=== PATIENT | male | born 1955 | race Caucasian/White ===

== ENCOUNTER 2018-10-01 09:58 | Outpatient (CLI) | payer BC ==
[~2018-10-01] VITALS: Ht 185.4 cm; Wt 122.5 kg
[2018-10-01] MEDS ORDERED: PANT40TA3 PO (11:04)
[2018-10-01] MEDS ORDERED: METF-397 PO (11:04)
[2018-10-01] MEDS ORDERED: LISI40TA PO (11:04)
[2018-10-01] MEDS ORDERED: ATOR40TA70 PO (11:04)
== END 2018-10-01 11:05 | disposition home or self-care (01) ==
LOC: PREOP 09:58
PROVIDERS: ATTEND Pediatrics
DX: Z01.818 Encounter for other preprocedural examination (principal)

== ENCOUNTER 2018-10-02 07:32 | Day surgery (SDC) | payer BC ==
[2018-10-02] VITALS (11 sets, daily range): BP systolic 116–147; BP diastolic 69–92
[~2018-10-02] VITALS: Ht 185.4 cm; Wt 139.3 kg
[~2018-10-02 07:32] MED LIST: ATOR40TA70 PO; LISI40TA PO; METF-397 PO; PANT40TA3 PO
[2018-10-02] MEDS ORDERED: NS IV 500 ML 500 ML ONE (07:33)
[2018-10-02] MEDS ORDERED: NS IV 500 ML 500 ML IV PRN (08:02)
[2018-10-02] MEDS ORDERED: MIDAZOLAM 2 MG/2 ML (VERSED) VIAL IVP ONE (08:15)
[2018-10-02] MEDS ORDERED: fentaNYL INJECTION 100 MCG/2 ML AMP IVP ONE (08:15)
[2018-10-02] MEDS ORDERED: fentaNYL INJECTION 100 MCG/2 ML AMP ONE (08:31)
[2018-10-02] MEDS ORDERED: MIDAZOLAM 2 MG/2 ML (VERSED) VIAL ONE ×3 (08:31→08:32)
--- NOTE | 2018-10-02 08:35 | Progress Note-Pre Operative ---
Pre-Operative Progress Note H&P Reviewed The H&P was reviewed, patient examined and no changes noted. Date Seen by Provider: Oct 02, 2018 Time Seen by Provider: 08:35 Date H&P Reviewed: Oct 02, 2018 Time H&P Reviewed: 08:35 Pre-Operative Diagnosis: DEL Summers MD Oct 02, 2018 08:35
--- NOTE | 2018-10-02 08:59 | Endoscopy Procedure Report ---
Colonoscopy Procedure Performed: Colonoscopy Pre-Operative Diagnosis: bowel habit change Post-Operative Diagnosis: diverticulosis Avionics Safety Inspector: None. Indications for Procedure: change on bowel habits Procedure Details: Informed consent was obtained, the risks, benefits and alternatives to the procedure were explained to the patient. The Joe Eugene, a 63 yr old male, was brought to to surgery area, sedated with 6 mg of Versed and 100 ug of fentanyl. He was placed in the left lateral decubitus position. Under direct visualization the scope was passed easily to the cecum. Cecum is identified by landmarks. Scope was carefully withdrawn. Findings: Ascending Colon: none Transverse Colon: none Descending/Sigmoid: diffuse severe diverticular changes Rectum: none Estimated Blood Loss: 0mL Specimens: none Complications: None; patient tolerated the procedure well. Final Diagnosis: diverticulosis DEL SALAZAR MD Oct 02, 2018 08:59
== END 2018-10-02 09:45 | disposition home or self-care (01) ==
LOC: ENDO 07:32
PROVIDERS: ATTEND Pediatrics
DX: K57.30 Diverticulosis of large intestine without perforation or abscess without bleeding (principal); R19.4 Change in bowel habit; Z86.010 Personal history of colon polyps; E11.9 Type 2 diabetes mellitus without complications; K22.70 Barrett's esophagus without dysplasia; I10 Essential (primary) hypertension; E78.2 Mixed hyperlipidemia; E78.00 Pure hypercholesterolemia, unspecified; K21.0 Gastro-esophageal reflux disease with esophagitis; Z91.041 Radiographic dye allergy status; Z79.84 Long term (current) use of oral hypoglycemic drugs; Z79.899 Other long term (current) drug therapy

== ENCOUNTER → 2022-04-18 | Outpatient (CLI) | payer MEDICARE, OTHER ==
[~2022-04-18] MED LIST changes: -LISI40TA PO; +LISI40TA9 PO; -PANT40TA3 PO; +PANT40TA52 PO
--- NOTE | 2022-04-18 11:38 | Diagnostic Imaging Report ---
PROCEDURE: CT abdomen and pelvis without contrast. TECHNIQUE: Multiple contiguous axial images were obtained through the abdomen and pelvis without the use of intravenous contrast. Auto Exposure Controls were utilized during the CT exam to meet ALARA standards for radiation dose reduction. INDICATION: Diverticulitis. COMPARISON: I have no previous for comparison. FINDINGS: The patient has [id number] sigmoid diverticulosis; however, no CT findings of acute diverticulitis found. The remaining colon shows more mild scattered intermittent noninflamed diverticular disease, also chronic. The appendix is well visualized and appeared normal. In segment of the liver in the far inferior right hepatic lobe's tip, there is a 1.8 cm low-density nodule which cannot be further characterized at this unenhanced exam. The remaining liver shows likely fatty infiltration and a low-density nodule in the left hepatic lobe superiorly, 1.5 cm. While inconclusive, these are both likely cysts; however, nonemergent outpatient sonographic confirmation recommended. This patient has a small hiatal hernia with the lung bases clear. Spleen is nonfocal and normal in size. The adrenals and pancreas are negative. There is a multilobulated cystic mass in the upper pole of the left kidney with few areas of calcification, likely calcified septa and multiseptated cystic lesion. In aggregate, the process measured 11 x 9.2 cm in axial plane. There is a hyperdense exophytic nodule off the mid pole of the left kidney, 2.7 cm, as well as a smaller lower pole exophytic hyperdense nodule, 1.6 cm. Right kidney shows multiple low-density cystic appearing renal nodules measuring maximal 4.5 cm as well as small exophytic hyperdense nodule, 12 mm. Findings likely reflect a combination of simple and complex renal cyst. Hyperdense lesions probably reflect proteinaceous and/or remote hemorrhagic debris. Given the lesions' numbers, complexity, and particularly the partly calcified multiseptated left upper pole renal lesion, workup with a formal postcontrast-enhanced imaging is recommended. If the patient cannot tolerate iodine, outpatient MRI with and without contrast recommended. If performed either CT or MR with contrast if that includes the liver should also help clear the indeterminate hepatic lesions and prove their cystic composition as well. There is no hydronephrosis and no nephrolithiasis. No ileus or bowel obstruction. There is no ascites. There is no mesenteric or retroperitoneal adenopathy. No suspicious bony lesion. IMPRESSION: 1. Noninflamed sigmoid diverticulosis and a normal appendix. 2. Multiple likely bilateral renal cysts and left and right hepatic lobe cysts; however, confirmation with dedicated multiphase postcontrast-enhanced CT or MRI utilizing renal protocol recommended as several of the renal lesions have complexity. 3. No hydronephrosis. No adenopathy. No inflammatory process, ascites, fluid collections, or acute appearing abnormalities. 4. Small hiatal hernia. Dictated by: Dictated on workstation # [id number]
== END ==
LOC: RAD FS 08:25
PROVIDERS: ATTEND Family Medicine
DX: K57.30 Diverticulosis of large intestine without perforation or abscess without bleeding (principal); K57.92 Diverticulitis of intestine, part unspecified, without perforation or abscess without bleeding; K44.9 Diaphragmatic hernia without obstruction or gangrene
CPT/HCPCS: 74176